=== PATIENT | female | born 1995 | race Caucasian/White ===

== ENCOUNTER 2017-04-02 14:16 | Emergency (ER) | payer OTHER ==
--- NOTE | 2017-04-02 15:12 | DIAGNOSTIC IMAGING REPORT ---
PROCEDURE: XR WRIST MIN 3 VIEWS - RIGHT INDICATION: TRAUMA/INJURY TECHNIQUE: Five views of the right wrist. COMPARISON: None. FINDINGS: Normal mineralization. No fractures. Normal osseous alignment. No suspicious soft-tissue calcification or radiodense foreign bodies. IMPRESSION: 1. Intact right wrist.
--- NOTE | 2017-04-02 15:21 | ED CLINICAL REPORT ---
Clinical Report - Physicians/Mid Levels [facility] [address] [place] [address] 04/02/2017 14:19 Patient: GUS LORENZO Time Seen: 1433; upon arrival, initial patient contact, initial documentation, patient care assumed. Arrived- By private vehicle. Historian- patient. Evaluation limited thai speaking only, stacy Gupta helping with translation when needed. HISTORY OF PRESENT ILLNESS Chief Complaint: Injury to the right wrist. The injury happened today. The patient sustained a light direct blow (cooking menendez lid fell on wrist). Occurred at work. Patient is experiencing severe pain. Patient denies injury to the head or neck. No other injury. REVIEW OF SYSTEMS The patient has had new onset of localized numbness of the right index finger (mild), right middle finger (mild), right ring finger (mild) and right little finger (mild), (says her fingers feel like they are asleep). No swelling, tingling, weakness, foreign body or skin laceration. All systems otherwise negative, except as recorded above. PAST HISTORY Negative. The patient's dominant hand is the right. SOCIAL HISTORY Never smoker. No alcohol use or drug use. No recent travel. Is a local resident. FAMILY HISTORY No significant family medical history. ADDITIONAL NOTES The nursing notes have been reviewed with agreement regarding the chief complaint, HPI, ROS, PMH and patient medications and allergies. PHYSICAL EXAM Vital Signs: 04/02/2017 14:31 BP: 126/85. HR: 94. RR: 14. O2 saturation: 95%. Temp: 98.4 F. Have been reviewed as normal and appear to be correct. Appearance: Alert. Oriented X3. No acute distress. Head: Head atraumatic. Eyes: Pupils equal, round and reactive to light. Eyes normal inspection. Respiratory: No respiratory distress. Skin: Skin warm and dry. Skin intact. Extremities: Wrist injury present. Right wrist: mild tenderness located in the area of the radial styloid and ulnar styloid. Limited ROM (diminished flexion, ulnar deviation and radial deviation). Neurovascular intact distally. No erythema, swelling, laceration, abrasion or puncture wound. No foreign body, ecchymosis or deformity. No joint effusion. No hand injury. Hand and wrist exam otherwise negative. Extremities otherwise negative. Neuro, Vascular and Tendons: Vascular status intact. Sensation intact. Motor intact. Tendon function intact. Neuro: Oriented X 3. No motor deficit. No sensory deficit. Note: isolated injury to wrist. LABS, X-RAYS, AND EKG X-Rays: Right wrist negative. Rt Wrist X-ray: (IMPRESSION: 1. Intact right wrist. Electronically Final signed by:Kyle Kinsey MD 04/02/2017 3:13:44 PM). The X-rays were interpreted by the radiologist and contemporaneously by me. PROGRESS AND PROCEDURES Patient counseled in person regarding the patient's stable condition, test results and diagnosis. 15:15. Differential Diagnosis: Other possible considerations: wrist fx, vs sprain. Above considerations are based on history, physical exam and X-Ray data. Differential diagnosis was discussed with patient. Disposition: Discharged home in good and unchanged condition. Condition: good and stable. CLINICAL IMPRESSION Acute pain in the right upper extremity (wrist). INSTRUCTIONS Apply ice for 20 minutes four times a day for one until better. Don't apply ice directly to skin. Elevate affected areas above chest level today until better. Warnings: GENERAL WARNINGS: Return or contact your physician immediately if your condition worsens or changes unexpectedly, if not improving as expected, or if other problems arise. Specifically return if problem worsens. Follow-up: Follow up with your doctor in about one week as needed. Call for an appointment. Summary of care provided to patient. Understanding of the discharge instructions verbalized by patient. (Electronically signed by Juliet Elliott A.R.N.P. 04/02/2017 17:56)
--- NOTE | 2017-04-02 15:21 | ED NURSING NOTES ---
Clinical Report - Nurses [facility] [place] [address] 04/02/2017 14:19 Patient: GUS LORENZO TRIAGE Triage time 14:Apr 02 2017. Acuity: LEVEL 4. Chief Complaint: INJURY TO RIGHT HAND. 14:04/02/17. Alert. No acute distress. SEPSIS SCREEN: Sepsis Screen. Negative (no infection suspected/documented). DASH COMA SCORE: Dash Coma Scale: 15- eyes open spontaneously (4); best verbal response- oriented x 4 (5); best motor response- obeys commands (6). --14:31 Mary Ellen Motta 14:04/02/17. BP: 126/85. HR: 94. RR: 14. O2 saturation: 95%. Temp: 98.4 F. Pain level now 10/10. --14:31 Mary Ellen Motta 14:04/02/17. --14:31 Mary Ellen Motta. Weight: 56.6 kg stated. Height/Length: 64 inches Per Patient. BMI: 21.4. --14:30 Mary Ellen Motta. Medications None. --14:29 Mary Ellen Motta. Medication/allergy information source: the patient. --14:31 Mary Ellen Motta. Allergies None. --14:29 Mary Ellen Motta. History Arrived by private vehicle. Historian: patient. Accompanied by family. This occurred today. Occurred at work. ( Pt reports lid to a big menendez fell on wrist at work today.). She has had numbness. 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 PAST MEDICAL HX: Tetanus status: up-to-date. Immunizations: up-to-date. SOCIAL HX: Never smoker. No alcohol use or drug use. FALL RISK ASSESSMENT: Fall risk assessment completed. No fall risk identified. NUTRITIONAL RISK ASSESSMENT: The nutritional risk assessment revealed no deficiencies. FUNCTIONAL ASSESSMENT: Functional assessment: no impairments noted. LEARNING NEEDS ASSESSMENT: The learning needs assessment revealed no barriers. SKIN INTEGRITY ASSESSMENT: Skin integrity risk assessment completed. No skin integrity risk identified. --14:31 Mary Ellen Motta No primary care physician. --14:31 Mary Ellen Motta. Assessment The patient states feels the same. --14:31 Mary Ellen Motta. Interventions ID band on patient. --14:31 Mary Ellen Motta. PHYSICAL ASSESSMENT Ambulatory to room. GENERAL / NEURO / PSYCH: Oriented X 4. Alert. Appears in no acute distress. She has had numbness. EXTREMITIES: Capillary refill is less than 2 seconds in the extremities. Extremity pulses are within normal limits. Extremities exhibit normal ROM. Right wrist: tenderness. Right hand: tenderness. SKIN: Skin intact. Skin is warm and dry. --14:32 Mary Ellen Motta. NURSING PROGRESS NOTES 14:32 04/02/17. The plan of care for this patient has been created. Cold pack applied. Extremity elevated. Neuro-vascular extremity check. Reassurance given. Two patient identifiers checked. Call light placed in reach. Bed placed in lowest position. Brakes of bed on. Patient ready for evaluation- chart flagged and ED physician and PA notified. --14:32 Mary Ellen Motta. DISPOSITION / DISCHARGE 15:27 04/02/17. Departure time: 15:Apr 02 2017. Condition at departure: improved. The goals identified in the patient's plan of care were met. No learning barriers present. Discharge instructions provided and reviewed with the patient. Reviewed warnings (Patient verbalized awareness of warning s/sx listed in dc paperwork.). Treatments reviewed. Reviewed referral to a primary care physician for followup. Patient verbalized understanding. Written instructions provided in Sinhala. The patient was discharged by the nurse practitioner. She was discharged home and accompanied by family. She left the Emergency Department ambulatory and via private vehicle. Family member driving. FALL RISK ASSESSMENT: Fall risk assessment completed. No fall risk identified. --15:35 Mary Ellen Motta. Locked/Released at 04/02/2017 15:35 by Mary Ellen Motta,
--- NOTE | 2017-04-02 15:21 | ED NURSING NOTES ---
Clinical Report - Nurses Merged [facility] [place] [address] 04/02/2017 14:19 Patient: GUS LORENZO TRIAGE Triage time 14:Apr 02 2017. Acuity: LEVEL 4. Chief Complaint: INJURY TO RIGHT HAND. 14:04/02/17. Alert. No acute distress. SEPSIS SCREEN: Sepsis Screen. Negative (no infection suspected/documented). DASH COMA SCORE: Dash Coma Scale: 15- eyes open spontaneously (4); best verbal response- oriented x 4 (5); best motor response- obeys commands (6). --14:31 Mary Ellen Motta 14:04/02/17. BP: 126/85. HR: 94. RR: 14. O2 saturation: 95%. Temp: 98.4 F. Pain level now 10/10. --14:31 Mary Ellen Motta 14:04/02/17. --14:31 Mary Ellen Motta. Weight: 56.6 kg stated. Height/Length: 64 inches Per Patient. BMI: 21.4. --14:30 Mary Ellen Motta. Medications None. --14:29 Mary Ellen Motta. Medication/allergy information source: the patient. --14:31 Mary Ellen Motta. Allergies None. --14:29 Mary Ellen Motta. History Arrived by private vehicle. Historian: patient. Accompanied by family. This occurred today. Occurred at work. ( Pt reports lid to a big menendez fell on wrist at work today.). She has had numbness. 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 PAST MEDICAL HX: Tetanus status: up-to-date. Immunizations: up-to-date. SOCIAL HX: Never smoker. No alcohol use or drug use. FALL RISK ASSESSMENT: Fall risk assessment completed. No fall risk identified. NUTRITIONAL RISK ASSESSMENT: The nutritional risk assessment revealed no deficiencies. FUNCTIONAL ASSESSMENT: Functional assessment: no impairments noted. LEARNING NEEDS ASSESSMENT: The learning needs assessment revealed no barriers. SKIN INTEGRITY ASSESSMENT: Skin integrity risk assessment completed. No skin integrity risk identified. --14:31 Mary Ellen Motta No primary care physician. --14:31 Mary Ellen Motta. Assessment The patient states feels the same. --14:31 Mary Ellen Motta. Interventions ID band on patient. --14:31 Mary Ellen Motta. PHYSICAL ASSESSMENT Ambulatory to room. GENERAL / NEURO / PSYCH: Oriented X 4. Alert. Appears in no acute distress. She has had numbness. EXTREMITIES: Capillary refill is less than 2 seconds in the extremities. Extremity pulses are within normal limits. Extremities exhibit normal ROM. Right wrist: tenderness. Right hand: tenderness. SKIN: Skin intact. Skin is warm and dry. --14:32 Mary Ellen Motta. NURSING PROGRESS NOTES 14:32 04/02/17. The plan of care for this patient has been created. Cold pack applied. Extremity elevated. Neuro-vascular extremity check. Reassurance given. Two patient identifiers checked. Call light placed in reach. Bed placed in lowest position. Brakes of bed on. Patient ready for evaluation- chart flagged and ED physician and PA notified. --14:32 Mar yEllen Motta. DISPOSITION / DISCHARGE 15:27 04/02/17. Departure time: 15:Apr 02 2017. Condition at departure: improved. The goals identified in the patient's plan of care were met. No learning barriers present. Discharge instructions provided and reviewed with the patient. Reviewed warnings (Patient verbalized awareness of warning s/sx listed in dc paperwork.). Treatments reviewed. Reviewed referral to a primary care physician for followup. Patient verbalized understanding. Written instructions provided in Maltese. The patient was discharged by the nurse practitioner. She was discharged home and accompanied by family. She left the Emergency Department ambulatory and via private vehicle. Family member driving. FALL RISK ASSESSMENT: Fall risk assessment completed. No fall risk identified. --15:35 Mary Ellen Motta. Locked/Released at 04/02/2017 15:35 by Mary Ellen Motta,
--- NOTE | 2017-04-02 15:21 | ED CLINICAL REPORT ---
Clinical Report - Physicians/Mid Levels [facility] [address] [place] [address] 04/02/2017 14:19 Patient: GUS LORENZO Time Seen: 1433; upon arrival, initial patient contact, initial documentation, patient care assumed. Arrived- By private vehicle. Historian- patient. Evaluation limited frisian speaking only, stacy Gupta helping with translation when needed. HISTORY OF PRESENT ILLNESS Chief Complaint: Injury to the right wrist. The injury happened today. The patient sustained a light direct blow (cooking menendez lid fell on wrist). Occurred at work. Patient is experiencing severe pain. Patient denies injury to the head or neck. No other injury. REVIEW OF SYSTEMS The patient has had new onset of localized numbness of the right index finger (mild), right middle finger (mild), right ring finger (mild) and right little finger (mild), (says her fingers feel like they are asleep). No swelling, tingling, weakness, foreign body or skin laceration. All systems otherwise negative, except as recorded above. PAST HISTORY Negative. The patient's dominant hand is the right. SOCIAL HISTORY Never smoker. No alcohol use or drug use. No recent travel. Is a local resident. FAMILY HISTORY No significant family medical history. ADDITIONAL NOTES The nursing notes have been reviewed with agreement regarding the chief complaint, HPI, ROS, PMH and patient medications and allergies. PHYSICAL EXAM Vital Signs: 04/02/2017 14:31 BP: 126/85. HR: 94. RR: 14. O2 saturation: 95%. Temp: 98.4 F. Have been reviewed as normal and appear to be correct. Appearance: Alert. Oriented X3. No acute distress. Head: Head atraumatic. Eyes: Pupils equal, round and reactive to light. Eyes normal inspection. Respiratory: No respiratory distress. Skin: Skin warm and dry. Skin intact. Extremities: Wrist injury present. Right wrist: mild tenderness located in the area of the radial styloid and ulnar styloid. Limited ROM (diminished flexion, ulnar deviation and radial deviation). Neurovascular intact distally. No erythema, swelling, laceration, abrasion or puncture wound. No foreign body, ecchymosis or deformity. No joint effusion. No hand injury. Hand and wrist exam otherwise negative. Extremities otherwise negative. Neuro, Vascular and Tendons: Vascular status intact. Sensation intact. Motor intact. Tendon function intact. Neuro: Oriented X 3. No motor deficit. No sensory deficit. Note: isolated injury to wrist. LABS, X-RAYS, AND EKG X-Rays: Right wrist negative. Rt Wrist X-ray: (IMPRESSION: 1. Intact right wrist. Electronically Final signed by:Kyle Kinsey MD 04/02/2017 3:13:44 PM). The X-rays were interpreted by the radiologist and contemporaneously by me. PROGRESS AND PROCEDURES Patient counseled in person regarding the patient's stable condition, test results and diagnosis. 15:15. Differential Diagnosis: Other possible considerations: wrist fx, vs sprain. Above considerations are based on history, physical exam and X-Ray data. Differential diagnosis was discussed with patient. Disposition: Discharged home in good and unchanged condition. Condition: good and stable. CLINICAL IMPRESSION Acute pain in the right upper extremity (wrist). INSTRUCTIONS Apply ice for 20 minutes four times a day for one until better. Don't apply ice directly to skin. Elevate affected areas above chest level today until better. Warnings: GENERAL WARNINGS: Return or contact your physician immediately if your condition worsens or changes unexpectedly, if not improving as expected, or if other problems arise. Specifically return if problem worsens. Follow-up: Follow up with your doctor in about one week as needed. Call for an appointment. Summary of care provided to patient. Understanding of the discharge instructions verbalized by patient. (Electronically signed by Juliet Elliott A.R.N.P. 04/02/2017 17:56)
--- NOTE | 2017-04-02 15:22 | ED ORDER SUMMARY ---
..... Patient: GUS LORENZO OrderSheet [facility] VisitID: [id number] [address] [place] [address] 21y, F Registration Date/Time: 04/02/2017 ORDER SHEET Weight: 56.6 kg (stated) Allergies: None GENERAL ORDERS: Wrist 3 or 4V Right Urgent (14:38 04/02/2017 Dede A.R.N.P.) ([facility] 14:40 Florentin) (15:10 [facility]) MEDICATION ORDERS: IV FLUIDS: ORDER SHEET NOTES: [Electronically signed by Mary Ellen Motta (15:35 04/02/2017)] [Electronically signed by Juliet Elliott A.R.N.P. (17:56 04/02/2017)] [Electronically locked/signed by Mary Ellen Motta (15:35 04/02/2017)]
--- NOTE | 2017-04-02 15:22 | ED ORDER SUMMARY ---
..... Patient: GUS LORENZO OrderSheet [facility] VisitID: [id number] [address] [place] [address] 21y, F Registration Date/Time: 04/02/2017 ORDER SHEET Weight: 56.6 kg (stated) Allergies: None GENERAL ORDERS: Wrist 3 or 4V Right Urgent (14:38 04/02/2017 Dede A.R.N.P.) ([facility] 14:40 Florentin) (15:10 [facility]) MEDICATION ORDERS: IV FLUIDS: ORDER SHEET NOTES: [Electronically signed by Mary Ellen Motta (15:35 04/02/2017)] [Electronically signed by Juliet Elliott A.R.N.P. (17:56 04/02/2017)] [Electronically locked/signed by Mary Ellen Motta (15:35 04/02/2017)]
--- NOTE | 2017-04-02 17:56 | ED MAR SUMMARY ---
..... Medication Administration Record [facility] [address], [place] [id number] Patient: GUS LORENZO Visit ID: [id number] 21y, F Weight: 56.6 kg Height/Length: 64 in BMI: 21.4 ALLERGIES: None
--- NOTE | 2017-04-02 17:56 | ED DISCHARGE INSTRUCTIONS ---
Patient: GUS LORENZO General Instructions [facility] VisitID: [id number] [place] [address] 21y, F Registration Date/Time: 04/02/2017 Acute pain in the right upper extremity (wrist). INSTRUCTIONS Apply ice for 20 minutes four times a day for one until better. Don't apply ice directly to skin. Elevate affected areas above chest level today until better. Warnings: GENERAL WARNINGS: Return or contact your physician immediately if your condition worsens or changes unexpectedly, if not improving as expected, or if other problems arise. Specifically return if problem worsens. Follow-up: Follow up with your doctor in about one week as needed. Call for an appointment. Summary of care provided to patient. Understanding of the discharge instructions verbalized by patient. ADDITIONAL INFORMATION Pain, Uncertain Cause [Acute] Pain is the bodys way of calling attention to a problem. Pain can be caused by many conditions - some minor, some serious. In your case, we were not able to find the exact cause for your pain. However, at this time there is no sign of any serious or life-threatening illness causing your pain. Sometimes more tests will be needed to determine the cause. Other times, just allowing more time to pass will either make it clear what the problem is, or the pain will go away by itself. Home Care: You may use acetaminophen (Tylenol) or ibuprofen (Motrin, Advil) to control pain, unless another medicine was prescribed. [NOTE: If you have chronic liver or kidney disease or ever had a stomach ulcer or GI bleeding, talk with your doctor before using these medicines.] Follow Up with your doctor or as advised by our staff. Get Prompt Medical Attention if any of the following occur: Changes in the pattern of your pain Appearance of new symptoms Fever of 100.4F (38C) or higher, or as directed by your healthcare provider Myositis Myositis is a class of rare auto-immune diseases that cause chronic inflammation. These include Polymyositis, which affects muscles throughout the body, and Dermatomyositis, which affects both skin and muscle. Other forms can affect the joints, heart, lungs and intestines. This condition can be hard to diagnose, because it resembles other diseases. Immune cells in the body usually attack and destroy viruses and harmful bacteria. In myositis, for unknown reasons, the immune system begins attacking the skin and/or muscles. Sometimes other parts of the body are also affected. Myositis may be triggered by exposure to certain chemicals, drugs, or viruses. It is important that you tell your doctor about any [id number] drug use, infection, or exposure to other substances that occurred near the time when your symptoms started. Stopping the exposure or treating the infection may stop myositis. The symptoms of myositis can be very different depending on the type you have. Common symptoms are muscle weakness (especially muscles of the hips and shoulders), loss of energy (fatigue), rash or changes in the skin, and arthritis (swollen, painful joints). You may have trouble climbing stairs, getting out of chairs, lifting heavy things, or raising your arms overhead. Sometimes the muscles ache and become tender. The swallowing muscles may also be affected. The disease usually starts slowly and may take months or years to develop. You may notice that you have periods when your symptoms get worse (active disease) followed by periods where symptoms get better or go away completely (remission). Treatment options include medication, rest, physical therapy and exercise. Your doctor may prescribe oral steroids or drugs that suppress the immune system in order to slow down the progress of the disease. Home Care: If you were prescribed a medication, take it as directed. You may use acetaminophen (Tylenol) or ibuprofen (Motrin, Advil) to control pain, unless another medicine was prescribed. [NOTE: If you have chronic liver or kidney disease or ever had a stomach ulcer or GI bleeding, talk with your doctor before using these medicines.] Dont take ibuprofen or other NSAIDs (non-steroidal anti-inflammatory drugs) if you were prescribed prednisone. Remain physically active. Light exercise and physical activity are helpful to keep your muscles in the best shape possible. Talk to your doctor about an exercise plan that is right for you. If you are having muscle aches, rest as needed. Follow Up with your doctor or as advised by our staff. For more information contact: Myositis Association, www.myositis.org Arth[employer] [phone], www.arthritis.org Return Promptly or contact your doctor if any of the following occur: Change in bowel or bladder habits Blood in the stool (black or red color) Unexpected weight loss A lump in the breast or elsewhere Difficulty swallowing Change in the appearance of a wart or mole Persistent cough, hoarseness or coughing up blood Night sweats or unexplained fevers Shortness of breath Arthralgia Arthralgia is the term for pain in or around the joint. It is not a disease but a symptom. This may involve one or more joints. Sometimes arthralgias move from joint to joint. There are many causes for joint pain. These include: Injury Osteoarthritis (from wearing out of the joint surface) Rheumatoid arthritis (an autoimmune disease) Gout (inflammation of the joint due to crystals in the joint fluid) Infection inside the joint Bursitis (inflammation of the fluid-filled sacs around the joint) Lupus and other collagen-vascular disease Home Care: Rest the involved joint(s) until your symptoms improve. You may use acetaminophen (Tylenol) or ibuprofen (Motrin, Advil) to control pain, unless another pain medicine was prescribed. [NOTE: If you have chronic liver or kidney disease or ever had a stomach ulcer or GI bleeding, talk with your doctor before using these medicines.] Follow Up with your doctor or as advised by our staff. [NOTE: If you had an X-ray it will be reviewed by a specialist. You will be notified of any new findings that may affect your care.] Return Promptly or contact your doctor if any of the following occurs: Pain increases Pain moves to other joints New rash appears Fever of 100.4F (38C) or higher, or as directed by your healthcare provider You have been given the following additional information: Pain, Uncertain Cause (Acute) Myositis Arthralgia (Electronically signed by Juliet Elliott A.R.N.P. 04/02/2017 17:56)
--- NOTE | 2017-04-02 17:56 | ED MED RECONCILIATION SUMMARY ---
Patient: GUS LORENZO Medication Reconciliation Report [facility] VisitID: [id number] [place] [address] 21y, F Registration Date/Time: 04/02/2017 Weight: 56.6 kg Height/Length: 64 in. BMI: 21.4 ALLERGIES: None The patient's Home Medications are listed below: NONE. The source(s) of the original Home Medication information: patient The following Medications were given to the patient in the Emergency Department: None. The following Medications were prescribed to the patient: None.
--- NOTE | 2017-04-02 17:56 | ED MAR SUMMARY ---
..... Medication Administration Record [facility] [address] [place], [place] [id number] Patient: GUS LORENZO Visit ID: [id number] 21y, F Weight: 56.6 kg Height/Length: 64 in BMI: 21.4 ALLERGIES: None
--- NOTE | 2017-04-02 17:56 | ED MED RECONCILIATION SUMMARY ---
Patient: GUS LORENZO Medication Reconciliation Report [facility] VisitID: [id number] [address] [place] [address] 21y, F Registration Date/Time: 04/02/2017 Weight: 56.6 kg Height/Length: 64 in. BMI: 21.4 ALLERGIES: None The patient's Home Medications are listed below: NONE. The source(s) of the original Home Medication information: patient The following Medications were given to the patient in the Emergency Department: None. The following Medications were prescribed to the patient: None.
== END 2017-04-02 15:27 | disposition home or self-care (01) ==
LOC: ED SRH 14:16
DX: M25.531 Pain in right wrist (principal); W20.8XXA Other cause of strike by thrown, projected or falling object, initial encounter; Y93.89 Activity, other specified; Y92.89 Other specified places as the place of occurrence of the external cause; Y99.0 Civilian activity done for income or pay